=== PATIENT | male | born 1985 | race Caucasian/White ===

== ENCOUNTER 2017-07-21 22:14 | Emergency (ER) | payer SELFPAY ==
[~2017-07-21] VITALS: Ht 193 cm; Wt 101.4 kg
[2017-07-21 22:17] VITALS: BP 142/85
== END 2017-07-21 23:09 | disposition home or self-care (01) ==
LOC: ED 23:00
DX: S10.93XA Contusion of unspecified part of neck, initial encounter (principal); S40.021A Contusion of right upper arm, initial encounter; S30.1XXA Contusion of abdominal wall, initial encounter; S70.12XA Contusion of left thigh, initial encounter; S70.11XA Contusion of right thigh, initial encounter; X58.XXXA Exposure to other specified factors, initial encounter; Y93.89 Activity, other specified; Y99.8 Other external cause status; Y92.89 Other specified places as the place of occurrence of the external cause
CPT/HCPCS: 70360; 99284